=== PATIENT | male | born 1975 | race Two or more races ===

== ENCOUNTER 2020-11-19 15:15 | Emergency (ER) | payer OTHER, SELFPAY ==
--- NOTE | 2020-11-19 15:18 | ED.GENADULT ---
HPI - General Adult General Chief complaint: Wound/Laceration Stated complaint: laceration Time Seen by Provider: 11/19/20 15:17 Source: patient Mode of arrival: ambulatory Limitations: no limitations History of Present Illness HPI narrative: Laceration to left index finger from piece of metal. 1 inch laceration to the volar aspect of the finger, bleeding controlled with pressure. Onset (ago): hour(s) Location: upper extremity Radiation: non-radiation Severity: mild Pain Consistency: constant Relieving factors: none Exacerbating factors: none Associated symptoms: denies other symptoms Treatments prior to arrival: none Related Data Allergies Allergy/AdvReac Type Severity Reaction Status Date / Time No Known Allergies Allergy Verified 11/19/20 15:25 Review of Systems Review of Systems: Yes all other systems are reviewed and are negative Constitutional: Constitutional: Reports no additional constitutional complaints, Denies body ache(s), Denies chills, Denies fever(s), Denies headache(s) and Denies weakness Eyes: Eyes: Reports no additional eye complaints and Denies change in vision ENT: Reports system reviewed and no additional complaints, except as documented, Denies dizziness, Denies headache(s), Denies nasal congestion, Denies nasal discharge and Denies neck pain Cardiovascular: Cardiovascular: Reports no additional cardiovascular complaints, Denies chest pain, Denies leg edema and Denies dyspnea Respiratory: Respiratory: Reports no additional respiratory complaints, Denies cough and Denies dyspnea Gastrointestinal: Gastrointestinal: Reports no additional gastrointestinal complaints, Denies abdominal pain, Denies diarrhea, Denies nausea and Denies vomiting Genitourinary: Genitourinary: Denies urinary incontinence Musculoskeletal: Musculoskeletal: Reports no additional musculoskeletal complaints, Denies back pain, Denies arthralgias, Denies joint swelling, Denies neck pain, Denies numbness and Denies tingling Integumentary/Breasts: Skin/Breast: Reports system reviewed and no additional complaints, except as docu and Denies rash Comments: skin laceration Neurologic: Reports system reviewed and no additional complaints, except as documented, Denies Abnormal speech present, Denies dizziness, Denies headache(s), Denies numbness, Denies tingling and Denies weakness PMFSH Past Medical History Attestation statement: The following information was validated with the patient. Source: old records reviewed and nursing notes reviewed Medical History Hypertension Social History Social History Advance Directives: No Advance Directives Information Provided: No Physical Exam Vital Signs: Vital Signs: Last Vital Signs Temp 98.4 F 11/19/20 15:19 Pulse 66 11/19/20 15:19 Resp 18 11/19/20 15:19 BP 139/82 11/19/20 15:19 Pulse Ox 98 11/19/20 15:19 Body Mass Index 26.6 Const: General: cooperative, healthy appearing, comfortable and no acute distress Orientation/consciousness: patient oriented x3 Limitations: no limitations HENMT: Head: Yes normal to inspection Ears: hearing grossly normal bilaterally General nose exam: Normal external nose present Face and sinus: Yes normal facial exam Mouth: Normal oral and palatal mucosa present Throat: Yes posterior oropharynx normal Eyes: General: appearance normal, both eyes and all related structures Pupils: Equal, round and reactive pupils present Neck: Neck: Yes normal visual inspection Chest: Chest palpation & inspection: normal inspection of the chest Resp: Effort & Inspection: normal respiratory effort Auscultation: clear to auscultation bilaterally Cardio: Rate: regular rate Rhythm: regular rhythm Peripheral pulses: Peripheral pulses 2+ throughout GI: Inspection: Yes normal to inspection Palpation (GI): Soft to palpation and nontender Auscultation: normal bowel sounds Back/Spine/Pelvis: Thoracic/Lumbar Spine: thoracic and lumbar spine normal to inspection Skin: General skin exam: no rashes or lesions noted Neuro: General: patient oriented x3, no focal motor deficits and normal sensation to monofilament Cranial nerves: Yes Equal, round and reactive pupils present Cognition (Neuro): normal cognition Speech: No Abnormal speech present Gait exam (Neuro): Normal gait present Motor exam (neuro): 5/5 motor strength present throughout Extrem: Other: To the volar aspecrt of the PIP there is a 1 inch laceration. Bleeding controlled. FROM. NV intact distally. Able to flex and extend independetely Course Course Course Narrative: 1520-This is a rapid medical exam. Laceration to left index finger from piece of metal. 1 inch laceration to the volar aspect of the finger, bleeding controlled with pressure. Will need tetanus, check x-ray. Additional HPI, ROS, PE deferred to primary provider. See procedure note. X-ray negative for FB or bony abnormality. Reviewed worrisome signs/symptoms and when to return to the ED. Comfortable with discharge home. Procedures Laceration Laceration 1: Site: upper extremity Side (If applicable): left Description: linear Depth: simple, single layer Local Anesthetic: lidocaine 2% Pre-repair: wound explored Skin layer closed with: nylon Size (cm): 5-0 Number of sutures: 3 Technique: simple, interrupted Medical Decision Making Imaging Data hand xay: Attestation: I personally reviewed and interpreted this imaging study as follows: Radiologist's impression: [facility] [place], [place] [id number] ReportSigned Patient: Rl YanceyMR#: [id number]: [id number]:[id number]/Sex: 45 / MADM Date: 11/19/20Loc: HO.EDAttending Dr: Ordering Physician: BON PATTEN NP Date of Service: 11/19/20 Procedure(s): XR hand LT min 3V Accession Number(s): [id number] cc: BON PATTEN NP~ EXAMINATION: XR HAND, LEFT CLINICAL INFORMATION: Laceration, trauma. COMPARISON: None TECHNIQUE: PA, lateral, and oblique views of the left hand. FINDINGS: There is soft tissue swelling mid index finger. A punctate linear density overlying the skin likely at site of laceration. There is no gas tracking in the soft tissues. The underlying bony structures appear intact with no fracture or dislocation or destructive process. XR/XR hand LT min 3V IMPRESSION: 1. No fracture or dislocation. 2. Punctate linear density likely overlying the skin at site of laceration. Discharge Plan Discharge Clinical Impression: Laceration Patient Disposition: Home, Self-Care Instructions: Laceration (ED) Additional Instructions: Sutures out in 7-10 days Do not soak in water but water may run over it. Wash with soap and water daily in the shower Referrals: ED Physician,Generic [Physician] - 2 days Interventions: ED Discharge Assessment Last Done: 11/19/20 17:56
[2020-11-19 15:19] VITALS: BP 139/82; PULSE 66; RESP 18; TEMP 36.9; O2SAT 98; BMI 26.6
--- NOTE | 2020-11-19 15:25 | XR_ITS ---
EXAMINATION: XR HAND, LEFT CLINICAL INFORMATION: Laceration, trauma. COMPARISON: None TECHNIQUE: PA, lateral, and oblique views of the left hand. FINDINGS: There is soft tissue swelling mid index finger. A punctate linear density overlying the skin likely at site of laceration. There is no gas tracking in the soft tissues. The underlying bony structures appear intact with no fracture or dislocation or destructive process. XR/XR hand LT min 3V IMPRESSION: 1. No fracture or dislocation. 2. Punctate linear density likely overlying the skin at site of laceration.
[2020-11-19] MEDS: Lidocaine HCl 2 % MPF 5 ML VIAL SUBCUT (17:30)
== END 2020-11-19 18:05 | disposition home or self-care (01) ==
LOC: HO.ED 18:06
PROVIDERS: Emergency Provider Emergency Medicine Emergency Medical Services
DX: S61.211A Laceration without foreign body of left index finger without damage to nail, initial encounter (principal); W26.8XXA Contact with other sharp object(s), not elsewhere classified, initial encounter; Y93.9 Activity, unspecified; Y92.019 Unspecified place in single-family (private) house as the place of occurrence of the external cause; Y99.9 Unspecified external cause status
CPT/HCPCS: 12002; 73130; 90471; 90715; 99283; 99284

== ENCOUNTER 2020-11-27 11:14 | Emergency (ER) | payer BC, SELFPAY ==
[2020-11-27 11:31] VITALS: BP 131/75; PULSE 70; RESP 16; TEMP 36.1; O2SAT 97; BMI 25.8
--- NOTE | 2020-11-27 11:38 | ED.WOUNDLAC ---
HPI - Wound/Laceration General Chief Complaint: Wound/Laceration <ALICIA Castro - Last Filed: 11/27/20 12:12> Stated Complaint: suture removal <ALICIA Castro - Last Filed: 11/27/20 12:12> Time Seen by Provider: 11/27/20 11:37 <ALICIA Castro - Last Filed: 11/27/20 12:12> Source: patient <ALICIA Castro Last Filed: 11/27/20 12:12> Mode of arrival: ambulatory <ALICIA Castro - Last Filed: 11/27/20 12:12> Limitations: no limitations <ALICIA Castro Last Filed: 11/27/20 12:12> History of Present Illness HPI narrative: 45 y/o male presenting for suture removal 8 days after he was seen here for laceration of the finger due to metal. He reports wound is healing well but he has a some numbness at the tip of his finger. He is able to fully bend the finger. No tingling or weakness. No redness or swelling. <ALICIA Castro Last Filed: 11/27/20 12:12> Related Data Allergies/Adverse Reactions: Allergies Allergy/AdvReac Type Severity Reaction Status Date / Time No Known Allergies Allergy Verified 11/19/20 15:25 <ALICIA Castro - Last Filed: 11/27/20 12:12> Review of Systems Review of Systems: Constitutional: No Fever Musculoskeletal: No joint pain, No Myalgias Skin: + Skin Lesions, No rash Neuro: No Weakness, + Numbness Heme/Lymph: No Bruising <ALICIA Castro - Last Filed: 11/27/20 12:12> PMFSH Past Medical History Medical History: Medical History Hypertension <ALICIA Castro Last Filed: 11/27/20 12:12> Social History Social History: Social History Smoked in Last 30 Days: No Use of substances other than those prescribed or required for medical reasons: No Advance Directives: Yes Advance Directives Information Provided: Yes Advance Directives on File: No <ALICIA Castro - Last Filed: 11/27/20 12:12> Physical Exam Vital Signs: Vital Signs: Last Vital Signs Temp 96.9 F 11/27/20 11:31 Pulse 70 11/27/20 11:31 Resp 16 11/27/20 11:31 BP 131/75 11/27/20 11:31 Pulse Ox 97 11/27/20 11:31 Body Mass Index 25.8 Appearance: Alert. Oriented X3. No acute distress. HEENT: normal inspection CVS: Normal heart rate and rhythm. Pulses normal. Respiratory: No respiratory distress. Skin: Skin warm and dry. Normal skin color. Normal skin turgor. No rashes. Extremities: left index finger with well healing 1.5 cm laceration to the volar aspect of the distal finger. Full ROM, +sensory deficit of tip. No erythema or drainage. Neuro: Oriented X 3. No motor deficit. <ALICIA Castro - Last Filed: 11/27/20 12:12> Vital Signs: Last Vital Signs Temp 96.9 F 11/27/20 11:31 Pulse 70 11/27/20 11:31 Resp 16 11/27/20 11:31 BP 131/75 11/27/20 11:31 Pulse Ox 97 11/27/20 11:31 Body Mass Index 25.8 <Gregorio Lopez MD - Last Filed: 12/04/20 08:00> Course Course Course Narrative: 45 yo male presenting for suture removal - 2 sutures removed without complications. 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 Mild numbness at the tip, otherwise no issues, full ROM. Advised to f/u with PCP. Stable for d/c. <ALICIA Castro - Last Filed: 11/27/20 12:12> I have reviewed the chart <Gregorio Lopez MD - Last Filed: 12/04/20 08:00> Critical Care Time Critical Care Time Critical Care Time: No <ALICIA Castro - Last Filed: 11/27/20 12:12> Discharge Plan Discharge Clinical Impression: Visit for suture removal <ALICIA Castro - Last Filed: 11/27/20 12:12> Patient Disposition: Home, Self-Care <ALICIA Castro - Last Filed: 11/27/20 12:12> Instructions: Stitches Removal (ED) <ALICIA Castro - Last Filed: 11/27/20 12:12> Additional Instructions: Allow the steri-strips to fall off on their own, do not peel them off. You can get your finger wet, but do not soak in water. Follow up with your doctor as needed. <ALICIA Castro - Last Filed: 11/27/20 12:12> Stand Alone Forms: Work/School Release <ALICIA Castro - Last Filed: 11/27/20 12:12> Interventions: ED Discharge Assessment Last Done: 11/27/20 12:53 <ALICIA Castro - Last Filed: 11/27/20 12:12> Discharge Date/Time: 11/27/20 12:20 <ALICIA Castro - Last Filed: 11/27/20 12:12>
== END 2020-11-27 12:20 | disposition home or self-care (01) ==
PROVIDERS: Emergency Provider Emergency Medicine
DX: Z48.02 Encounter for removal of sutures (principal)
CPT/HCPCS: 99283

== ENCOUNTER 2021-10-30 15:08 | Outpatient (REF) | payer BC, SELFPAY ==
[2021-10-30 16:59] LABS: Binax Internal Control QC Valid; Binax Lot number: 9864; Binax Now Covid-19 Ag Negative (Negative)
== END 2021-10-30 15:09 | disposition home or self-care (01) ==
LOC: HO.LAB 15:08
PROVIDERS: Visit Provider Internal Medicine
DX: Z20.822 Contact with and (suspected) exposure to COVID-19 (principal)
CPT/HCPCS: 36415; C9803

== ENCOUNTER → 2022-05-08 15:44 | Outpatient (BNVA) | payer OTHER, SELFPAY | PROVIDERS: PCP Internal Medicine; Visit Provider Urology | DX: N40.1 Benign prostatic hyperplasia with lower urinary tract symptoms (principal); R35.1 Nocturia; R39.89 Other symptoms and signs involving the genitourinary system | CPT/HCPCS: 51798 ==

== ENCOUNTER 2022-05-26 17:06 | Outpatient (REF) | payer OTHER, SELFPAY ==
[2022-05-26 17:16] LABS: MANUAL DIFF FLAG NO
[2022-05-26 17:31] LABS: Basophils Percent Auto 0.6 % (0-2); Eosinophils Absolute Auto 0.1 X10*3/uL (0.0-0.4); Eosinophils Percent Auto 1.8 % (0-4); Hematocrit 41.2 % (42.0-52.0); Hemoglobin 13.8 g/dl (14.0-18.0); Imm Gran Abs Auto 0.02 X10*3/uL (0.00-0.03); Imm Gran Pct Auto 0.4 % (0.0-0.4); Lymphocytes Absolute Auto 1.7 X10*3/uL (1.2-4.9); Lymphocytes Percent Auto 34.4 % (20-40); Mean Corpuscular HGB Conc 33.5 g/dl (31.0-36.0); Mean Corpuscular Hemoglobin 30.1 pg (27.0-33.0); Mean Platelet Volume 12.8 fL (9.4-12.4); Monocytes Absolute Auto 0.5 X10*3/uL (0.1-1.2); Monocytes Percent Auto 10.2 % (2-11); Neutrophils Absolute Auto 2.6 x10*3/uL (2.0-8.3); Neutrophils Percent Auto 52.6 % (45-73); Platelet Count 149 X10*3/uL (160-400); Red Blood Count 4.58 X10*6/uL (4.60-5.80); Red Cell Distribution Width 13.2 % (11.0-16.0); White Blood Count 4.9 X10*3/uL (4.8-10.8)
[2022-05-26 18:07] LABS: Thyroid Stimulating Hormone 4.19 uIU/mL (0.32-4.0)
== END 2022-05-26 17:07 | disposition home or self-care (01) ==
LOC: HO.LAB 17:06
PROVIDERS: PCP Internal Medicine; Visit Provider Internal Medicine
DX: E03.8 Other specified hypothyroidism (principal); I10 Essential (primary) hypertension; R53.83 Other fatigue
CPT/HCPCS: 36415; 84443; 85025

== ENCOUNTER 2022-07-10 15:18 | Outpatient (AMB) | payer OTHER, SELFPAY ==
--- NOTE | 2022-07-10 11:00 | A.OFFVIS_ITS ---
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 Is a patient of Dr. Wells. 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 On exam has intact bilateral inguinal canal with no evidence of hernia Normal bilateral testicles with normal cord structures Has discomfort with ejaculation does use Naprosyn Will trial tamsulosin PFSH Medical History Hypertension Social History Patient Tobacco Use Status: Former Tobacco user Tobacco use type: Cigarette Smoked in Last 30 Days: No Use of substances other than those prescribed or required for medical reasons: No Are you DNR?: No Advance Directives: No Advance Directives Information Provided: Yes Review of Systems Const Denies chills and Denies fever(s) Card Reports no additional complaints and Denies syncope Resp Denies cough GI Denies abdominal pain and Denies heartburn Reports as per HPI and Denies change in libido Neuro Denies syncope Psych Denies change in libido Endo Denies change in libido Physical Exam Const General: cooperative, healthy appearing, comfortable and no acute distress Orientation/consciousness: patient oriented x3 HEENT Face and sinus: Yes normal facial exam Mouth: moist mucous membranes Neck Neck: Yes normal visual inspection, Yes full ROM and Yes trachea midline Chest Chest palpation & inspection: normal inspection of the chest Resp Effort & Inspection: normal respiratory effort, able to speak in complete sen tences and no respiratory distress GI Inspection: Yes normal to inspection Back/Spine/Pelvis Cervical Spine: normal cervical lordosis Thoracic/Lumbar Spine: thoracic and lumbar spine normal to inspection Skin General skin exam: no rashes or lesions noted Neuro General: patient oriented x3, gait normal, tone normal and moves all extremities Extrem General: Yes normal to inspection and Yes capillary refill normal Assessment & Plan Assessment & Plan (1) Sensation of pressure in bladder area: Code(s): R39.89 - Other symptoms and signs involving the genitourinary system Plan PRN followup Patient Instructions: Imaging studies, laboratory and physical exam results were discussed and reviewed in detail. No major barriers to patient understanding were identified. An opportunity to ask questions regarding the treatment plan was provided. All questions were answered. The patient expressed understanding and agreement with the above treatment plan. The patient is aware they should contact our office by phone for worsening of their current condition or the appearance of new urologic symptoms. Compliance is encouraged with any medications and followup testing that is ordered. It is a privilege to participate in the urologic care of your patient. If you have any questions or concerns regarding treatment for the above conditions, or other urologic issues, please do not hesitate to contact me. The office telephone contact is [phone]. This note is constructed using voice recognition software. While every effort has been made to ensure accuracy rubber roller grinder operator errors may have been included. Yours sincerely, Dr Rubin Izaguirre MD, [facility] - Urology Providers of Expert, Compassionate Care for the Genitourinary System Coding Level of Care Code Est Pt Level 3 (06773) Diagnoses Sensation of pressure in bladder area R39.89
== END 2022-07-10 15:46 | disposition home or self-care (01) ==
LOC: HO.HUSH 15:18
PROVIDERS: PCP Internal Medicine; Visit Provider Urology
DX: R39.89 Other symptoms and signs involving the genitourinary system (principal)
CPT/HCPCS: 99499

== ENCOUNTER 2023-01-26 07:30 | Day surgery (SDC) | payer OTHER, SELFPAY ==
--- NOTE | 2023-01-25 14:00 | P.CONAN_ITS ---
Documented by User: Dora Pepe NP 01/25/23 14:03 HPI - Anesthesia Eval Consult details Narrative: 47yo M for Colonoscopy PMFSH Active Problems Active Problems: All Active Problems (Updated 05/08/22 @ 16:10 by Rubin Izaguirre MD) Sensation of pressure in bladder area (Acute) Past Medical History Medical History Hypertension Social History Social History Patient Tobacco Use Status: Former Tobacco user Tobacco use type: Cigarette Smoked in Last 30 Days: No Use of substances other than those prescribed or required for medical reasons: No Are you DNR?: No Advance Directives: No Advance Directives Information Provided: Yes Meds Allergies Allergy/AdvReac Type Severity Reaction Status Date / Time No Known Allergies Allergy Verified 01/26/23 07:57 Home Medications Medication Instructions Recorded Confirmed Last Taken Type naproxen 500 mg tablet 500 mg PO BID PRN headache 05/08/22 01/26/23 Unknown History amlodipine 5 mg tablet 5 mg PO DAILY 01/25/23 01/26/23 01/26/23 History Exam Exam Date and Time: January 25, 2023 1400 Assessment and Plan Assessment Anesthesia Assessment: Chart Reviewed Documented by User: Mariah Nogueira MD 01/26/23 08:49 [facility] Active Problems Active Problems: All Active Problems (Updated 05/08/22 @ 16:10 by Rubin Izaguirre MD) Sensation of pressure in bladder area (Acute) Snores but no diagnosis of MEGGAN Past Medical History Medical History Hypertension Family History Family history of problems with anesthesia: No Surgical History History of Problems with Anesthesia: No Social History Social History Patient Tobacco Use Status: Former Tobacco user Tobacco use type: Cigarette Smoked in Last 30 Days: No Use of substances other than those prescribed or required for medical reasons: No Are you DNR?: No Advance Directives: No Advance Directives Information Provided: Yes Meds Allergies Allergy/AdvReac Type Severity Reaction Status Date / Time No Known Allergies Allergy Verified 01/26/23 07:57 Home Medications Medication Instructions Recorded Confirmed Last Taken Type naproxen 500 mg tablet 500 mg PO BID PRN headache 05/08/22 01/26/23 Unknown History amlodipine 5 mg tablet 5 mg PO DAILY 01/25/23 01/26/23 01/26/23 History Exam Height,Weight and Vital Signs: Height 5 ft 3 in Weight 67.132 kg Vital Signs Temp Pulse Resp BP Pulse Ox O2 Del Method 01/26/23 07:52 98.6 F 76 16 143/81 H 98 Room Air Airway Mallampati Class: III TM Dist: >3cm Neck ROM: Full Loose/Missing/Broken Teeth: No (Denies broken, loose, missing teeth) Heart: RRR Lungs: CTAB Assessment and Plan Assessment Anesthesia Assessment: Anesthesia Plan Discussed Final Anesthetic Review Family History of Problems with Anesthesia: No History of Problems with Anesthesia: No NPO: Yes ASA Class: II Final Preanesthetic Review: No Changes in Pt Med Stat, Meds/Allgs Chart Reviewed, Consent Obtained/Reviewed and Anes Risks/Benef Reviewed Patient Risk: Low Procedure Risk: Low Assessment/Block/Sedation in SS: Assess/Block/Sedation-SS Anesthetic Plan Anesthetic Plan: MAC: Disposition: Standard PACU
[2023-01-26 07:52] VITALS: BP 143/81; PULSE 76; RESP 16; TEMP 37; O2SAT 98
[2023-01-26 08:01] VITALS: BMI 26.2
[2023-01-26] MEDS: Lactated Ringers 1,000 ML 100 ML IVCONT (08:13)
--- NOTE | 2023-01-26 08:47 | P.HPSUR_ITS ---
Pre-Procedural Eval Section A Date of Service: 01/26/23 Section B Chief Complaint: screening Details of Present Illness: see H*P Relevant Family History (Specify if Yes): No Relevant Social History: None Present Medications: see Short Stay Collaborative assessment Medical History: No relevant PMH Allergies: Allergies Allergy/AdvReac Type Severity Reaction Status Date / Time No Known Allergies Allergy Verified 01/26/23 07:57 Review of Systems Sugical H&P ROS: Negative: Constitution, Cardiovascular, Respiratory, Neurological, Psychiatric, Hem-Onc, Allergic/Immunologic, Gastrointestinal, Genitourinary, Musculoskeletal, Integumentary, Endocrine and Eyes/E ars/Nose/Throat Exam Surgical H&P Exam: Normal: HEENT, Normal: Heart, Normal: Lungs, Normal: Extremities, Normal: Abdomen, Normal: Skin and Normal: Neurological Plan Diagnosis/Plan: Unchanged I have reviewed the history and physical and performed a pertinent physical examination on my patient. No changes have occurred unless specified. Time Spent With Patient Time: Total time managing care of this patient today ____ minutes.
--- NOTE | 2023-01-26 09:25 | PM.OP ---
Brief Operative Note Date of Service: 01/26/23 Pre-op diagnosis: screening Post-op diagnosis: same Surgeon: Daniel Guntre Anesthesia: MAC Was an Reimbursement Auditor used for this Procedure?: No Estimated blood loss (mL): 0 Pathology: none sent Condition: stable Disposition: PACU
[2023-01-26 09:27] VITALS: BP 90/57; PULSE 59; RESP 16; TEMP 36.2; O2SAT 97
[2023-01-26 09:46] VITALS: BP 112/72; PULSE 53; RESP 18; TEMP 36.1; O2SAT 97
--- NOTE | 2023-01-26 10:00 | OP_ITS ---
DATE OF SERVICE: 01/26/2023 SURGEON: Daniel Gunter MD INDICATIONS: Colon cancer screening. PREOPERATIVE DIAGNOSIS: POSTOPERATIVE DIAGNOSIS: PROCEDURE PERFORMED: Colonoscopy to the terminal ileum. ESTIMATED BLOOD LOSS: COMPLICATIONS: ANESTHESIA: Monitored anesthesia care. ASSISTANTS: SPECIMENS: DESCRIPTION OF PROCEDURE: The procedure was performed on 01/26/2023. A history and physical were performed. The risks and benefits of the procedure were explained to the patient, and informed consent was obtained. The patient was placed in the left lateral decubitus position. A digital rectal exam was performed and was found to be normal. The Olympus pediatric video colonoscope was introduced into the rectum and advanced to the cecum without difficulty. The cecum was identified by transillumination, palpation, and identification of the ileocecal valve. Examination was performed and the scope was removed. He tolerated the procedure well and was returned to recovery in stable condition. FINDINGS: The terminal ileum was normal. The visualized colonic mucosa was normal. The quality of the prep was good. No polyps were identified. Retroflexed examination was normal. There were internal hemorrhoids noted that were small in size. IMPRESSION: Normal colonoscopy. RECOMMENDATION: 1. Follow up as needed. 2. Repeat colonoscopy is recommended in 10 years for average risk individuals. MD ROSEANNE Sanford/VALERYL / [id number]
== END 2023-01-26 10:12 | disposition home or self-care (01) ==
PROVIDERS: PCP Internal Medicine; Visit Provider Internal Medicine Gastroenterology
PROC: 0DJD8ZZ Inspection of Lower Intestinal Tract, Via Natural or Artificial Opening Endoscopic (ICD-10-PCS; CPT 45378; principal; 2023-01-26 08:40)
DX: Z12.11 Encounter for screening for malignant neoplasm of colon (principal); K64.8 Other hemorrhoids; I10 Essential (primary) hypertension; Z79.899 Other long term (current) drug therapy; Z87.891 Personal history of nicotine dependence
CPT/HCPCS: 45378